=== PATIENT | female | born 1965 | race Caucasian/White ===

== ENCOUNTER 2017-03-27 10:18 | Emergency (ER) | payer OTHER ==
[~2017-03-27] VITALS: Ht 154.9 cm; Wt 90.0 kg
[~2017-03-27 10:18] MED LIST: OMEPRAZOLE PO; SIMVASTATIN PO; STOMACH MED PO
[2017-03-27 10:26] VITALS: Ht 154.9 cm; Wt 90.0 kg
--- NOTE | 2017-03-27 12:09 | ERD ---
ER Documentation Chief Complaint Date/Time DATE: 03/27/17 TIME: 12:05 Chief Complaint RASHES; LOWER BACK PAIN HPI 52-year-old female presents with bruising to her right antecubital after blood draw yesterday, she also states she has a diffuse low back pain, to the buttocks after falling down the stairs a month and a half ago. She had a regular blood sugar on the right arm, and she was concerned that this may be scabies because she is at home a intermediate right now. Patient also reports achy pain is diffuse, and she states she slid down the stairs when she slipped while wearing socks and landed on her buttocks. It is worse in movement, achy, she denies paresthesias, loss of bowel bladder function, saddle anesthesia. ROS All systems reviewed and are negative except as per history of present illness. 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 The patient appears in no acute distress. HEENT: Head is normocephalic, atraumatic. No scleral icterus Neck: Supple. Nontender. Lungs: Clear to auscultation. Normal air movement. Heart: Regular rate and rhythm. S1 and S2 are normal. No murmurs, gallops, or rubs. Abdomen: Soft, nontender, nondistended. Bowel sounds are normoactive. Extremities: No bony deformities, no ecchymosis, patient is ambulatory. Neurologic: Alert and oriented 3. No focal deficits. Skin: Small hematoma on the right antecubital. There is no lymphatic streaking. No swelling. Procedures/MDM 52-year-old female comes in apparently had a fall over a month ago when she slid down the stairs and fell on her buttocks. Patient's history and physical examination is most consistent with the low back, sacral contusion versus fracture. I have offered the patient x-rays of the lumbar spine and pelvis, she states "I do not want to waste pupils time" and would like to defer the x- rays. She would like a note saying she is to sleep in the bottom bunk because of her back injury. I do not see signs of any fracture obvious, I did encourage patient to get x-rays regardless of her symptoms, but she states that she would not like to get them done at this time. She will be given a note to sleep in the bottom bunk for just several more weeks but is to follow-up with her primary doctor if her symptoms do not improve. There are no acute signs for compression syndrome or cauda equina. Secondarily her skin complain in a right antecubital is a small hematoma without signs of infection or scabies. Departure Diagnosis: Primary Impression: Hematoma Additional Impression: Back pain Condition: Good Patient Instructions: Self-Care for Low Back Pain, Hematoma OLGA RODRIGUEZ PA-C Mar 27, 2017 12:09
== END 2017-03-27 12:11 | disposition home or self-care (01) ==
LOC: FTE 10:18
DX: S30.0XXA Contusion of lower back and pelvis, initial encounter (principal); W10.9XXA Fall (on) (from) unspecified stairs and steps, initial encounter; Y92.9 Unspecified place or not applicable; Z95.0 Presence of cardiac pacemaker; Z87.891 Personal history of nicotine dependence
CPT/HCPCS: 99282

== ENCOUNTER 2018-03-02 06:09 | Day surgery (SDC) | END 2018-03-02 10:41 | disposition home or self-care (01) ==